=== PATIENT | female | born 1955 | race Asian ===

== ENCOUNTER 2024-10-29 18:43 | Inpatient (IN) | payer MEDICARE, OTHER ==
[~2024-10-29] VITALS: Ht 149.9 cm; Wt 63.5 kg
[~2024-10-29 18:43] MED LIST: ATOR20TA PO; CALC500T62 PO; METF-444 PO; MVI PO; RISP1TAB48 PO; TOLT4CAP PO; VALS160T2 PO
[2024-10-29 19:48] LABS: BASOPHILS % (AUTO) 0.5 % (0.0-2.0); EOSINOPHILS % (AUTO) 0.5 % (1.0-6.0); HEMATOCRIT 40.6 % (36-46); HEMOGLOBIN 13.5 g/dL (12.0-16.0); LYMPHOCYTES # (AUTO) 1.4 K/uL (1.0-4.8); LYMPHOCYTES % (AUTO) 13.6 % (22.0-44.0); MEAN CORPUSCULAR HEMOGLOBIN 29.5 pg (26.0-34.0); MEAN CORPUSCULAR HGB CONC 33.2 G/dL (31.0-37.0); MEAN CORPUSCULAR VOLUME 89 fL (80-100); MONOCYTES # (AUTO) 0.6 K/uL (0.1-1.0); MONOCYTES % (AUTO) 5.5 % (2.0-9.0); NEUTROPHILS # (AUTO) 8.4 K/uL (1.8-7.7); NEUTROPHILS % (AUTO) 79.9 % (40.0-70.0); PLATELET COUNT (AUTO) 349 K/uL (150-450); RED BLOOD CELL COUNT(AUTO) 4.57 MIL/uL (4.00-5.20); RED CELL DISTRIBUTION WIDTH 13.9 % (11.5-14.5); WHITE BLOOD COUNT (AUTO) 10.6 K/uL (4.5-11.0)
[2024-10-29 19:50] LABS: ANION GAP 10 mmol/L (8-16); CALCIUM, TOTAL 9.8 mg/dL (8.8-10.5); CARBON DIOXIDE 27 mmol/L (22-29); CHLORIDE 106 mmol/L (98-107); CREATININE 1.04 mg/dL (0.60-1.30); GLOMERULAR FILTR. RATE CALC 52 mL/min (>60); GLUCOSE,RANDOM 99 mg/dL (70-110); POTASSIUM 3.3 mmol/L (3.5-5.1); SODIUM SERUM 143 mmol/L (136-145); UREA NITROGEN, BLOOD 15 mg/dL (7-18)
[2024-10-29 19:59] LABS: ALCOHOL, BLOOD (SERUM) < 3 mg/dL (0-10)
[2024-10-29] MEDS: POTASSIUM CHLORIDE 20 MEQ ER TABLET PO ONE (20:45)
[2024-10-29] MEDS ORDERED: MAGNESIUM HYDROXIDE SUSPENSION 30 ML UDCUP PO PRN (21:30)
[2024-10-29] MEDS ORDERED: LORazepam 2 MG TABLET PO PRN (21:30)
[2024-10-29] MEDS ORDERED: HALOPERIDOL 5 MG TABLET PO PRN (21:30)
[2024-10-29] MEDS ORDERED: ACETAMINOPHEN 325 MG TABLET PO PRN (21:30)
[2024-10-29] MEDS ORDERED: ZOLPIDEM TARTRATE 10 MG TABLET PO PRN (21:30)
[2024-10-29] MEDS ORDERED: LOPERAMIDE HCL 2 MG CAPSULE PO PRN (21:30)
[2024-10-29] MEDS ORDERED: MAG HYDROX/ALUMINUM HYD/SIMETH ES 30 ML SUSPENSION UDCUP PO PRN (21:30)
[2024-10-29 21:59] LABS: COVID AG,FIA SOURCE NASAL SWAB
[2024-10-29 22:26] LABS: APPEARANCE,URINE CLEAR (CLEAR); BILIRUBIN,URINE NEGATIVE (NEGATIVE); COLOR,URINE LIGHT YELLOW (YELLOW); GLUCOSE, URINE (UA) TRACE mg/dL (NEGATIVE); KETONES,URINE NEGATIVE (NEGATIVE); LEUKOCYTE ESTERASE ,URINE TRACE (NEGATIVE); NITRATE,URINE NEGATIVE (NEGATIVE); OCCULT BLOOD,URINE NEGATIVE (NEGATIVE); PROTEIN,URINE TRACE mg/dL (NEGATIVE); SPECIFIC GRAVITIY, URINE 1.008 (1.003-1.030); UROBILINOGEN,URINE <=1.0 mg/dL (<=1.0)
[2024-10-29 22:27] LABS: ALCOHOL, URINE DRUG SCREEN NEGATIVE (NEGATIVE); AMPHET/METH SCREEN,URINE NEGATIVE (NEGATIVE); BARBITURATE SCREEN, URINE NEGATIVE (NEGATIVE); BENZODIAZEPINES SCREEN,URINE NEGATIVE (NEGATIVE); CANNABINOID SCREEN,URINE NEGATIVE (NEGATIVE); COCAINE SCREEN,URINE NEGATIVE (NEGATIVE); METHADONE SCREEN, URINE NEGATIVE (NEGATIVE); OPIATE SCREEN,URINE NEGATIVE (NEGATIVE); PHENCYCLIDINE SCREEN,URINE NEGATIVE (NEGATIVE)
[2024-10-29 22:36] LABS: SARS-COV2 (COVID) ANTIGEN,FIA Negative (Negative)
[2024-10-29 22:36] LABS: BACTERIA,URINE Few /HPF (None Seen); RBC,URINE 0-2 /HPF (0-2)
[2024-10-29 22:37] LABS: SQUAMOUS EPITHELIAL CELL,UR Few /LPF (None Seen)
[2024-10-29 23:14] VITALS: O2SAT 100
[2024-10-30 01:35] VITALS: BP 178/78; PULSE 88; RESP 18; TEMP 97.7; O2SAT 97
[2024-10-30 02:15] VITALS: BP 170/90; PULSE 90
[2024-10-30 02:42] VITALS: BP 158/72; PULSE 72
[2024-10-30 06:19] VITALS: BP 133/57; PULSE 64
[2024-10-30] MEDS ORDERED: GuaiFENesin/D-METHORPHAN [SUGAR-FREE] 200-20MG/10 ML SYRUP UDCUP PO PRN ×2 (06:30→06:45)
[2024-10-30] MEDS ORDERED: DOCUSATE SODIUM 100 MG CAPSULE PO PRN ×2 (06:30→06:45)
[2024-10-30] MEDS ORDERED: LOPERAMIDE HCL 2 MG CAPSULE PO PRN ×2 (06:30→06:45)
[2024-10-30] MEDS ORDERED: ONDANSETRON 4 MG TABLET PO PRN ×2 (06:30→06:45)
[2024-10-30] MEDS ORDERED: ALBUTEROL SULFATE HFA 90 MCG/PUFF 8 GM INHALER IH PRN ×2 (06:30→06:45)
[2024-10-30] MEDS ORDERED: CloNIDine HCL 0.1 MG TABLET PO PRN ×2 (06:30→06:45)
[2024-10-30] MEDS ORDERED: MAGNESIUM HYDROXIDE SUSPENSION 30 ML UDCUP PO PRN ×2 (06:30→06:45)
[2024-10-30] MEDS ORDERED: NICOTINE 14 MG/24 HOUR PATCH TD PRN (06:30)
[2024-10-30] MEDS ORDERED: IBUPROFEN 400 MG TABLET PO PRN ×2 (06:30→06:45)
[2024-10-30] MEDS ORDERED: MAG HYDROX/ALUMINUM HYD/SIMETH ES 30 ML SUSPENSION UDCUP PO PRN ×2 (06:30→06:45)
[2024-10-30] MEDS ORDERED: PETROLATUM,WHITE 28 GM JELLY TP PRN ×2 (06:30→06:45)
[2024-10-30] MEDS ORDERED: ACETAMINOPHEN 325 MG TABLET PO PRN ×2 (06:30→06:45)
[2024-10-30 08:33] LABS: BASOPHILS % (AUTO) 1.2 % (0.0-2.0); EOSINOPHILS % (AUTO) 1.5 % (1.0-6.0); HEMATOCRIT 40.5 % (36-46); HEMOGLOBIN 13.6 g/dL (12.0-16.0); LYMPHOCYTES # (AUTO) 1.6 K/uL (1.0-4.8); LYMPHOCYTES % (AUTO) 19.2 % (22.0-44.0); MEAN CORPUSCULAR HEMOGLOBIN 29.8 pg (26.0-34.0); MEAN CORPUSCULAR HGB CONC 33.5 G/dL (31.0-37.0); MEAN CORPUSCULAR VOLUME 89 fL (80-100); MONOCYTES # (AUTO) 0.5 K/uL (0.1-1.0); MONOCYTES % (AUTO) 5.4 % (2.0-9.0); NEUTROPHILS # (AUTO) 6.2 K/uL (1.8-7.7); NEUTROPHILS % (AUTO) 72.7 % (40.0-70.0); PLATELET COUNT (AUTO) 346 K/uL (150-450); RED BLOOD CELL COUNT(AUTO) 4.56 MIL/uL (4.00-5.20); WHITE BLOOD COUNT (AUTO) 8.6 K/uL (4.5-11.0)
[2024-10-30 08:35] VITALS: BP 132/65; PULSE 72; RESP 17; TEMP 97.5; O2SAT 95
[2024-10-30] MEDS: MetFORMIN HCL 500 MG TABLET PO SCH (08:40)
[2024-10-30 08:53] LABS: HEMOGLOBIN A1C 6.6 % (3.8-5.6)
[2024-10-30 08:54] LABS: ALBUMIN 3.7 g/dL (3.4-5.0); BILIRUBIN,TOTAL 1.1 mg/dL (0.1-1.0); CALCIUM, TOTAL 9.6 mg/dL (8.8-10.5); CREATININE 1.02 mg/dL (0.60-1.30); FREE T4 (FREE THYROXINE) 1.46 ng/dL (0.76-1.46); POTASSIUM 3.9 mmol/L (3.5-5.1); THYROID STIMULATING HORMONE 2.68 uIU/mL (0.36-3.74); TOTAL PROTEIN, SERUM 8.5 g/dL (6.4-8.2)
[2024-10-30] MEDS: CALCIUM [CALCIUM CARB 1250MG] 500 MG TABLET PO SCH (12:48)
[2024-10-30] MEDS: TOLTERODINE TARTRATE 2 MG ER CAPSULE PO SCH (12:48)
[2024-10-30] MEDS: OLANZapine 7.5 MG TABLET PO SCH (12:48)
[2024-10-30] MEDS: ATORVASTATIN CALCIUM 20 MG TABLET PO SCH (20:30)
[2024-10-30 20:31] VITALS: BP 106/60; PULSE 72; RESP 16; TEMP 97.2; O2SAT 95
[2024-10-30] MEDS: INFLUENZA VIRUS VACCINE TVS (6MO+) 2024-25/PF 45 MCG/0.5 ML SYRINGE IM. ONE (20:54)
[2024-10-31 08:27] VITALS: BP 145/72; PULSE 92; RESP 17; TEMP 97.5; O2SAT 96
[2024-10-31 21:00] VITALS: BP 141/68; PULSE 79; RESP 18; TEMP 97.3; O2SAT 98
[2024-11-01 08:33] VITALS: BP 174/68; PULSE 80; RESP 17; TEMP 91.3; O2SAT 96
[2024-11-01 21:11] VITALS: BP 124/80
[2024-11-02 20:30] VITALS: BP 143/64; PULSE 67; RESP 18; TEMP 97.3; O2SAT 95
[2024-11-03 08:00] VITALS: BP 130/56; PULSE 67; RESP 16; O2SAT 95
[2024-11-03 20:30] VITALS: BP 140/61; PULSE 60; RESP 18; TEMP 97.7; O2SAT 97
[2024-11-04 08:32] VITALS: BP 153/67; PULSE 81; RESP 16; TEMP 97.7; O2SAT 97
[2024-11-04 20:16] VITALS: BP 129/60; PULSE 88; RESP 18; TEMP 98.1; O2SAT 96
[2024-11-05 08:37] VITALS: BP 153/71; PULSE 78; RESP 16; TEMP 97.7; O2SAT 96
[2024-11-05 20:00] VITALS: BP 138/60; PULSE 81; RESP 17; TEMP 96.6
[2024-11-05] MEDS: DIVALPROEX SODIUM 500 MG DR TABLET PO SCH (20:30)
[2024-11-06 08:52] VITALS: BP 170/65; PULSE 76; RESP 18; TEMP 96.5; O2SAT 95
[2024-11-06 13:10] VITALS: BP 148/62; PULSE 91; RESP 16; O2SAT 96
[2024-11-06] MEDS: VALSARTAN 40 MG TABLET PO SCH (13:13)
[2024-11-06 17:17] VITALS: BP 118/60; PULSE 80; RESP 16; O2SAT 96
[2024-11-06 20:48] VITALS: BP 117/53; PULSE 82; RESP 17; TEMP 97.8; O2SAT 96
[2024-11-07 08:31] VITALS: BP 116/64; PULSE 82; RESP 16; TEMP 97.3; O2SAT 98
[2024-11-07 22:54] VITALS: BP 140/55; PULSE 69; RESP 16; TEMP 98.6; O2SAT 98
[2024-11-08 08:16] VITALS: BP 134/52; PULSE 69; RESP 16; TEMP 97.7; O2SAT 94
[2024-11-08 20:21] VITALS: BP 131/65; PULSE 66; RESP 18; TEMP 97.9
[2024-11-09 13:27] VITALS: BP 143/64; PULSE 82; RESP 18; TEMP 97.2; O2SAT 95
[2024-11-09 20:19] VITALS: BP 138/61; PULSE 73; RESP 18; TEMP 98.3; O2SAT 95
[2024-11-10 08:35] VITALS: BP 140/59; PULSE 65; RESP 18; TEMP 97.6; O2SAT 95
[2024-11-10 16:38] VITALS: BP 161/78; PULSE 75; RESP 18
[2024-11-10 20:25] VITALS: BP 146/60; PULSE 75; RESP 18; TEMP 97.7; O2SAT 95
[2024-11-11 08:23] VITALS: BP 148/67; PULSE 72; RESP 18; TEMP 98.1; O2SAT 95
[2024-11-11 16:38] VITALS: BP 140/62; PULSE 77; RESP 18; O2SAT 97
[2024-11-11 20:05] VITALS: BP 139/55; PULSE 68; RESP 18; TEMP 97.2; O2SAT 95
[2024-11-12 08:23] VITALS: BP 145/61; PULSE 72; RESP 18; TEMP 97.7; O2SAT 85
[2024-11-12] MEDS ORDERED: OLAN7.5T22 PO (15:17)
[2024-11-12] MEDS ORDERED: DIVA-112 PO (15:18)
[2024-11-12] MEDS ORDERED: ARIP882S2 IM (15:19)
[2024-11-12] MEDS ORDERED: METF-1211 PO (15:23)
[2024-11-12] MEDS ORDERED: VALS40TA4 PO (15:25)
[2024-11-13] MEDS ORDERED: ARIPiprazole LAUROXIL ER SUSPENSION 882 MG/3.2 ML SYRINGE IM SCH (09:00)
== END 2024-11-12 16:00 | disposition home or self-care (01) | DRG 885 ==
LOC: EMS 18:43 → B2X 23:32
PROVIDERS: ADMIT Psychiatry & Neurology Psychiatry; ATTEND Psychiatry & Neurology Psychiatry
PROC: GZHZZZZ Group Psychotherapy (ICD-10-PCS; principal; 2024-10-30)
PROC: GZ52ZZZ Individual Psychotherapy, Cognitive (ICD-10-PCS; 2024-10-30)
DX: F20.0 Paranoid schizophrenia (principal); I10 Essential (primary) hypertension; E87.6 Hypokalemia; E11.9 Type 2 diabetes mellitus without complications; E78.00 Pure hypercholesterolemia, unspecified; N32.81 Overactive bladder; F41.9 Anxiety disorder, unspecified; R32 Unspecified urinary incontinence; Z79.899 Other long term (current) drug therapy; Z20.822 Contact with and (suspected) exposure to COVID-19; Z95.0 Presence of cardiac pacemaker; F32.A Depression, unspecified; Z63.4 Disappearance and death of family member
CPT/HCPCS: 80048; 80053; 80061; 80164; 80307; 81001; 83036; 84439; 84443; 85025; 87081; 90686; 99285; G0480